=== PATIENT | male | born 1980 | race Caucasian/White ===

== ENCOUNTER 2016-11-27 10:56 | Day surgery (SDC) | payer BC ==
--- NOTE | ~2016-11-27 | EGD ---
EGD REPORT [facility] [address] [id number] NAME: JOVON SERRANO IIII : 80 STATUS : REG [facility]#: [id number] AGE: 36 ADM/REG DATE : 11/27/16 MR#: [id number] REPORT SERV DATE: 11/27/16 DICTATED BY: TEJA KNUTSON DATE: 11/27/16 REPORT STATUS : Draft TRANSCRIBED BY: [facility] DATE: 11/27/16 Endoscopy Center Patient Name: Jovon Serrano Date of : 1980 Attending MD: TEJA KNUTSON MD Procedure Date No Time: 11/27/2016 Procedure: Colonoscopy Indications: Rectal bleeding Medicines: as per anesthesia Complications: No immediate complications. Procedure: Pre-Anesthesia Assessment: - ASA Grade Assessment: II - A patient with mild systemic disease. After I obtained informed consent, the scope was passed under direct vision. Throughout the procedure, the patient's blood pressure, pulse, and oxygen saturations were monitored continuously. The PCF [id number] was introduced through the anus and advanced to the cecum, identified by appendiceal orifice and ileocecal valve. The colonoscopy was somewhat difficult due to significant looping and a tortuous colon. The patient tolerated the procedure. The quality of the bowel preparation was fair. Findings: The perianal and digital rectal examinations were normal. Internal hemorrhoids were found during endoscopy and were mild. Impression: - Internal hemorrhoids. Recommendation: - Repeat colonoscopy at age 50 for surveillance. Procedure Code(s): --- Professional --- 73552, Colonoscopy, flexible, proximal to splenic flexure; diagnostic, with or without collection of specimen(s) by brushing or washing, with or without colon decompression (separate procedure) Diagnosis Code(s): --- Professional --- K64.8, Other hemorrhoids K62.5, Hemorrhage of anus and rectum CPT copyright 2013 [employer]. All rights reserved. EGD REPORT [facility] [address] [address] NAME: JOVON SERRANO IIII : 80 STATUS : REG [facility] [place] PAT#: [id number] AGE: 36 ADM/REG DATE : 11/27/16 MR#: [id number] REPORT SERV DATE: 11/27/16 DICTATED BY: TEJA KNUTSON. DATE: 11/27/16 REPORT STATUS : Draft TRANSCRIBED BY: [employer] DATE: 11/27/16 The codes documented in this report are preliminary and upon timber management specialist review may be revised to meet current compliance requirements. TEJA KNUTSON MD 11/27/2016 2:03 PM This report has been signed electronically. Number of Addenda: 0 Note Initiated On: 11/27/2016 1:26 PM Scope Withdrawal Time 0 hours 4 minutes 13 seconds [address] [id number]
[~2016-11-27 10:56] MED LIST: ADVIL PO; FISH-EPA1000 MG PO; MULTIVIT/MIN PO
== END 2016-11-27 23:59 | disposition home health service (06) ==
LOC: DMU 10:56
PROVIDERS: Internal Medicine Gastroenterology
PROC: 0DJD8ZZ Inspection of Lower Intestinal Tract, Via Natural or Artificial Opening Endoscopic (ICD-10-PCS; principal; 2016-11-27 12:00)
DX: K64.8 Other hemorrhoids (principal); Z88.8 Allergy status to other drugs, medicaments and biological substances; Z87.891 Personal history of nicotine dependence; Z88.5 Allergy status to narcotic agent; Z98.890 Other specified postprocedural states